=== PATIENT | female | born 1990 | race Caucasian/White ===

== ENCOUNTER → 2022-06-12 16:00 | Outpatient (CLI) | payer BC, SELFPAY ==
--- NOTE | ~2022-06-12 | US_ITS ---
EXAMINATION: US OB <= 14 weeks fetus DATE: 06/12/2022 16:23 INDICATION: Encounter for screening to assess dating and viability of during firs t trimester TECHNIQUE: Real-time pelvic ultrasound utilizing both a transvaginal and transabdominal probe was pe rformed. The interpreting radiologist was not present for the study. COMPARISON: None. FINDINGS: The uterus measures 14.4 x 10.7 x 11.2 cm cm. There is a single living fetus in variable presentation . The placenta is posterior. heart rate is 157 beats per minute (bpm). The amniotic fluid volu me is subjectively normal. Incidentally noted 2.8 cm anechoic right adnexal cyst. The following biometric data were obtained: BPD: 2.5 cm -> 14 weeks 1 days Head circumference: 9.7 cm -> 14 weeks 3 days Abdominal circumference: 7.6 cm -> 14 weeks 1 days Femur length: 1.1 cm -> 13 weeks 1 days These measurements are concordant. Head circumference to abdominal circumference ratio: 1.27 (normal range 1.10-1.35). Estimated weight: 82 g (+/-) 12 g IMPRESSION: 1. Single living fetus in variable presentation with heart rate of 157 bpm. 2. Gestational age by ultrasound of 14 weeks 0 day(s) +/- 7 day(s) with ultrasound estimated date of delivery (ILIA) of 12/11/2022. Estimated weight is 94th percentile by Hadlock criteria when 2022 is used as the ILIA. Please correlate with clinical information or earlier ultrasounds for most a ccurate ILIA. Reviewed, dictated and finalized at location A. IMPRESSION: 1. Single living fetus in variable presentation with heart rate of 157 bp m. 2. Gestational age by ultrasound of 14 weeks 0 day(s) +/- 7 day(s) with ultraso und estimated date of delivery (ILIA) of 12/11/2022. Estimated weight is 94 th percentile by Hadlock criteria when 12/20/2022 is used as the ILIA. Please cor relate with clinical information or earlier ultrasounds for most accurate ILIA.
== END ==
PROVIDERS: PCP Advanced Practice Midwife; Visit Provider Advanced Practice Midwife
DX: Z36.9 Encounter for antenatal screening, unspecified (principal); Z3A.14 14 weeks gestation of pregnancy
CPT/HCPCS: 76801

== ENCOUNTER → 2022-07-22 11:40 | Outpatient (CLI) | payer BC, SELFPAY ==
--- NOTE | ~2022-07-22 | US_ITS ---
EXAMINATION: US OB /maternal detail DATE: 07/22/2022 12:28 INDICATION: Second trimester anatomic survey TECHNIQUE: Real-time ultrasound of the pelvis was performed. COMPARISON: None. FINDINGS: There is a single living fetus in transverse lie. The placenta is posterior/fundal and 7.1 cm from th e internal cervical os. The cervical length is 2.9 cm. heart rate is 149 beats per minute (bpm) . cardiac activity and movement are noted. The amniotic fluid index is subjectively norm al. The following anatomy was identified as normal: 4 chamber heart 3 vessel cord cord insertion kidneys urinary bladder stomach spine diaphragm ventricles cisterna magna cerebellum The following biometric data were obtained: Biparietal diameter (BPD): 4.5 cm; head circumference (HC): 16.7 cm; abdominal circumference (AC): 14 .0 cm; femur length (FL): 2.7 cm. These measurements are concordant. Estimated weight is 266 g +/- 39 g, which correlates with the 12th percentile when 12/11/2022 is used as estimated date of delivery. As single measurements, these parameters are each equal to the following estimated gestational ages w ith ranges of +/- 2 standard deviations: BPD: 19 weeks 4 days ( 17 weeks 5 days - 21 weeks 2 days). HC: 19 weeks 3 days ( 17 weeks 6 days - 20 weeks 6 days). AC: 19 weeks 3 days ( 17 weeks 2 days - 21 weeks 3 days). FL: 18 weeks 2 days ( 16 weeks 3 days - 20 weeks 1 days). estimated gestational age based solely on measurements from this exam is 19 weeks 1 days +/- 1 weeks 2 days. IMPRESSION: 1. Single living fetus in transverse lie. 2. Estimated weight is 266 g +/- 39 g, which correlates with the 12th percentile when 12/11/2022 is used as estimated date of delivery. Reviewed, dictated and finalized at location A. IMPRESSION: 1. Single living fetus in transverse lie. 2. Estimated weight is 266 g +/- 39 g, which correlates with the 12th per centile when 12/11/2022 is used as estimated date of delivery.
== END ==
PROVIDERS: PCP Obstetrics & Gynecology Gynecology; Visit Provider Nurse Practitioner
DX: Z36.9 Encounter for antenatal screening, unspecified (principal)
CPT/HCPCS: 76805

== ENCOUNTER → 2022-10-14 14:02 | Outpatient (CLI) | payer BC, SELFPAY ==
--- NOTE | ~2022-10-14 | US_ITS ---
EXAMINATION: US OB follow up DATE: 10/14/2022 14:32 INDICATION: Size less than dates. Third trimester. TECHNIQUE: Real-time ultrasound of the pelvis was performed. COMPARISON: Ultrasound 07/22/2022, 06/12/2022 FINDINGS: There is a single living fetus in vertex presentation. The placenta is posterior and fundal. h eart rate is 143 beats per minute (bpm). The amniotic fluid index is 20.3 cm, which is normal. The following biometric data were obtained: Biparietal diameter (BPD): 7.9 cm; head circumference (HC): 28.8 cm; abdominal circumference (AC): 25 .7 cm; femur length (FL): 6.0 cm. These measurements are concordant. Estimated weight is 1609 g +/- 241 g, which correlates with the 12th percentile when 12/11/22 is used as estimated date of delivery. As single measurements, these parameters are each equal to the following estimated gestational ages: BPD: 31 weeks 5 days. HC: 31 weeks 5 days. AC: 29 weeks 6 days. FL: 31 weeks 2 days. estimated gestational age based solely on measurements from this exam is 31 weeks 1 days +/- 2 weeks 1 days. IMPRESSION: 1. Single living fetus in vertex presentation. 2. Estimated weight is 1609 g +/- 241 g, which correlates with the 12th percentile when 3 is used as estimated date of delivery. This date was set by ultrasound on 06/12/2022. Reviewed, dictated and finalized at location A. [employer] IMPRESSION: 1. Single living fetus in vertex presentation. 2. Estimated weight is 1609 g +/- 241 g, which correlates with the 12th percentile when 12/11/22 is used as estimated date of delivery. This date was se t by ultrasound on 06/12/2022.
== END ==
PROVIDERS: PCP Advanced Practice Midwife; Visit Provider Advanced Practice Midwife
DX: O36.5930 Maternal care for other known or suspected poor fetal growth, third trimester, not applicable or unspecified (principal); Z3A.31 31 weeks gestation of pregnancy
CPT/HCPCS: 76816

== ENCOUNTER → 2022-11-11 15:58 | Outpatient (CLI) | payer BC, SELFPAY ==
--- NOTE | ~2022-11-11 | US_ITS ---
Pelvic ultrasound. Clinical History: Third trimester , size less than dates Technique: Realtime transabdominal scanning of the pelvis was performed. Findings: The uterus is anteverted, and contains an intrauterine gestation. Biparietal diameter is 8. 8 cm. Head circumference is 31.8 cm. Abdominal circumference is 31.2 cm. Femur length is 6.6 cm. Feta l heart rate is 144 bpm. Amniotic fluid index is 18.0. Estimated weight is 2555 g, +/- 383 g. Impression: Live intrauterine gestation, with estimated gestational age of 35 weeks 1 day. heart rate is 14 4 bpm. Estimated weight is 2555 g, +/- 383 g. ILIA is 12/15/2022. Reviewed, dictated and finalized at location . NICAL DESIGNER Impression: Live intrauterine gestation, with estimated gestational age of 35 weeks 1 day. heart rate is 144 bpm. Estimated weight is 2555 g, +/- 383 g. ILIA is 12/15/2022.
== END ==
PROVIDERS: PCP Nurse Practitioner Family; Visit Provider Obstetrics & Gynecology Gynecology
DX: O36.5930 Maternal care for other known or suspected poor fetal growth, third trimester, not applicable or unspecified (principal); Z3A.35 35 weeks gestation of pregnancy
CPT/HCPCS: 76816

== ENCOUNTER 2022-12-07 04:58 | Inpatient (IN) | payer BC, SELFPAY ==
[2022-12-07] VITALS (91 sets, daily range): BP systolic 82–128; BP diastolic 50–89; PULSE 67–174; RESP 15–18; TEMP 36.6–36.9; O2SAT 89–100; BMI 27.6
--- NOTE | 2022-12-07 04:58 | LDADM ---
This patient, Jessica Stuart, was admitted to Labor/Delivery/Recovery 105 on 12/07/22 at 04:58. Plans for labor, pain management and were discussed with patient. Patient/family oriented to hospital policies and general routines including ID bracelet, bed and alarms, visiting hours, pain management, procedures, bathroom and other care routines, personal items, smoking policy, room service/diet and guest tray routines, security routines, and visiting hours. Patient/Family are encouraged to report perceived risks to care and to ask questions if they do not understand what they are told or what they should do. See OBIX for further documentation.
[2022-12-07] MEDS: OXYTOCIN 30 UNITS/NS 500 ML 30 UNITS/500 ML BAG IV CONT (05:52)
[2022-12-07] MEDS: LACTATED RINGERS 1,000 ML 125 ML IV CONT ×2 (05:53→08:33)
[2022-12-07 05:57] LABS: Basophils Percent Auto 0.3 % (0.2-1.2); Eosinophils Absolute Auto 0.1 K/mm3 (0-0.3); Eosinophils Percent Auto 0.8 % (0-4.4); Hematocrit 34.3 % (37.0-47.0); Immature Granulocyte Absolute 0.09 K/mm3 (0.00-0.031); Immature Granulocyte Percent A 0.6 % (0-0.5); Lymphocytes Absolute Auto 2.88 K/mm3 (0.9-3.2); Lymphocytes Percent Auto 20.4 % (18.3-44.2); Mean Corpuscular Hemoglobin 31.6 pg (26-34); Mean Corpuscular Volume 90.3 fl (80-100); Monocytes Absolute Auto 0.9 K/mm3 (0.1-0.6); Monocytes Percent Auto 6.3 % (2.6-8.5); Neutrophils Absolute Auto 10.1 K/mm3 (1.3-6.7); Neutrophils Percent Auto 71.6 % (45.5-73.1); Platelet Count Result 273 k/mm3 (150-375); Red Cell Distribution Width 12.3 % (11.5-14.5); White Blood Count 14.1 K/mm3 (4.5-10.0)
--- NOTE | 2022-12-07 07:47 | WPDOBADMIT ---
Obstetrics - Admit Note Admission Note: record reviewed. No pertinent additions to the history and/or any subsequent changes in the physical findings that are not consistent with the expected course of the were found. Additions to the history and/or subsequent changes in the physical findings follow. None.
--- NOTE | 2022-12-07 07:47 | PM.OBPNLAB ---
Pain Control Date/time seen: 12/07/22 07:40 Pain control: tolerating well Pelvic Exam Dilation (cm): 4 Effacement (%): 75 station: -2 Amniotic membrane status: Intact Contractions Monitor mode: External Contraction pattern: Irregular Contraction intensity: Mild Status status: Category l Assessment and Plan Pitocin rate (mU/min): 8 (decreased to 4 ml/hr after AROM) Assessment: induction ongoing Comments: CNM to bedside. Discussed plan of care an option for amniotomy and placement of IUPC. Discussed risks, benefits, and expectations of breaking wate as well as IUPC placement. Patient is agreeable. Amniotomy performed and there was a large return of clear amniotic fluid. IUPC placed easily and clear fluid returned in catheter. Oxytocin decreased to 4 ml/hr. Patient tolerated procedure well. Plan to increase pitocin as needed to achieve adequate contraction pattern. Anticipate vaginal . Dr. Morocho updated on pt status.
[2022-12-07 08:13] LABS: Rapid Plasma Reagin Non-Reactive (NonReactive)
--- NOTE | 2022-12-07 08:42 | WPDANESEPP ---
Anes - Eval Pre Procedure Procedure: labor epidural Date/Time: 12/07/22 08:42 Preop Diagnosis: pain during labor Pre Op Diagnosis: iol Patient Data Age: 32 Gender: F Height: 1.7 m Weight: 80 kg Last Vital Signs Temp 36.8 C 12/07/22 06:00 Pulse 89 12/07/22 08:31 Resp 15 12/07/22 06:00 BP 116/77 12/07/22 08:31 Pulse Ox 98 12/07/22 08:37 O2 Del Method Room Air 12/07/22 05:35 Allergies Allergy/AdvReac Type Severity Reaction Status Date / Time No Known Allergies Allergy Verified 11/28/22 14:33 Home Medications Medication Instructions Recorded Confirmed Type vit#24-iron amino acid 1 tablet PO DAILY 11/28/22 12/07/22 History chelat-folic acid 30 mg-975 mcg tablet Laboratory Tests 12/07/22 12/07/22 12/07/22 05:36 05:36 05:36 WBC 14.1 K/mm3 H K/mm3 (4.5-10.0) RBC 3.80 M/mm3 L M/mm3 (4.2-5.4) Hgb 12.0 g/dL g/dL (12.0-15.0) Hct 34.3 % L % (37.0-47.0) MCV 90.3 fl fl (80-100) MCH 31.6 pg pg (26-34) MCHC 35.0 g/dl g/dl (32-36) RDW 12.3 % % (11.5-14.5) Plt Count 273 k/mm3 k/mm3 (150-375) MPV 10.0 fl fl (7.4-10.4) Immature Gran % (Auto) 0.6 % H % (0-0.5) Neut % (Auto) 71.6 % % (45.5-73.1) Lymph % (Auto) 20.4 % % (18.3-44.2) [place] % (Auto) 6.3 % % (2.6-8.5) Eos % (Auto) 0.8 % % (0-4.4) Baso % (Auto) 0.3 % % (0.2-1.2) Lymph # (Auto) 2.88 K/mm3 K/mm3 (0.9-3.2) [place] # (Auto) 0.9 K/mm3 H K/mm3 (0.1-0.6) Eos # (Auto) 0.1 K/mm3 K/mm3 (0-0.3) Baso # (Auto) 0.0 K/mm3 K/mm3 (0.0-0.1) Abs Immat Gran (auto) 0.09 K/mm3 H K/mm3 (0.00-0.031) Absolute Neuts (auto) 10.1 K/mm3 H K/mm3 (1.3-6.7) Absolute Nucleated RBC 0.0 K/mm3 K/mm3 (0.0-0.012) Nucleated RBC % 0.0 % % (0.0-0.2) RPR Non-reactive (NonReactive) Blood Type A Positive Antibody Screen Negative Patient hx anesthesia problems: none Family hx anesthesia problems: none Results Review: All pre-operative results and documents have been reviewed as part of the pre-operative evaluation. [facility] Past Medical History Medical History (Updated 12/07/22 @ 08:43 by Jacinta Sanchez CRNA) IUP (intrauterine ), incidental Family History Family History (Updated 11/28/22 @ 14:36 by Jaz Juarez RN) Father Congestive cardiac failure Diabetes mellitus Social History Social History Smoking status: Never smoker Substance use: never Lack of Transportation: YES Lack of Food: Never True Current Housing: I Have Housing Concerned About Future Housing: No Difficulty Paying Gas/Electric Bills: No Difficulty Paying for Meds: No Currently Unemployed: No Education: Bachelor's Degree Difficulty w/ Childcare or Family Care: No Spiritual care concerns: No Exam Day of Procedure 12/07/22 08:42
--- NOTE | 2022-12-07 11:42 | PM.OBPRVD ---
OB - Delivery Note Procedure Delivery date: 12/07/22 Procedure: Induction method: Per Pitocin Protocol Delivery augmentation: Rupture of Membranes Delivery monitor: External FHT, External Uterine and Internal FHT Route of delivery: Episiotomy description: None Laceration Description: Superficial (right labial and vaginal. Both hemostatic, no repair required) Specimen: No Quantitative Blood Loss (ml): 50 Anesthesia type: Epidural Disposition: Floor Narrative: Patient arrived for induction of labor and Pitocin was started. Amniotomy performed. Patient made Quick change to complete dilation. CNM to bedside. Patient pushed with only 3 contractions and brought the head to a full crown. After the delivery of the head there was excellent restitution. A double nuchal cord was identified and the baby was delivered in a somersault fashion. The nuchal cord was reduced and the was placed skin to skin on the maternal abdomen. Care was transferred to the nursery staff. After 1 minute of life the cord was doubly clamped and cut. Cord blood and cord gases were obtained, as well as a cord segment. All delivery counts correct. Mother and baby skin to skin in the delivery room. Baby Date of : 12/07/22 Time of : 11:29 Weeks of gestation at delivery: 39 gender: Male Weight (pounds): 6 Weight (ounces): 6 presentation: vertex position: Left Occiput Anterior Placenta delivery description: Spontaneous Cord Vessel Description: 3 Vessels, Nuchal Cord (x 2), Clamped/Cut and Delayed Cord Clamping score one minute: 9 score five minutes: 9
--- NOTE | 2022-12-07 11:46 | PM.OBDSVD ---
DS: Admitting Diagnosis Discharge Date 12/08/2022 Admitting Diagnosis 32 y.o. at 39 weeks. IOL DS: Discharge Diagnosis Discharge Diagnosis (1) (normal spontaneous vaginal delivery): Code(s): O80 - Encounter for full-term uncomplicated delivery Status: Acute (2) Mother currently breast-feeding: Code(s): Z39.1 - Encounter for care and examination of lactating mother Status: Acute OB - DS: Summary Hospital Course Hospital Course: Uncomplicated OB Procedures : Ultrasound OB Procedures Intrapartum: Spontaneous Vag Delivery OB Procedures: : None Peripartum Data Infant Delivery Method: Natural Vaginal Laceration Description: Superficial Episiotomy description: None complications: none Status at Discharge Overall status at discharge: patient is progressing back to baseline Time Spent with Patient Time attestation: Total time spent providing and/or coordinating discharge services: Exam Narrative: Alert and oriented. Mood is pleasant and cooperative. Urinating without difficulty. Denies passing any large clots. Perineum with minimal edema. Fundus firm and below umbilicus. Const: General: cooperative, healthy appearing, no acute distress and alert Orientation/consciousness: patient oriented x3 Limitations: no limitations Resp: Effort & Inspection: normal respiratory effort Auscultation: clear to auscultation bilaterally Cardio: Rate: regular rate GI: Inspection: normal to inspection Neuro: General: patient oriented x3 Extrem: General: normal to inspection Psych: Appearance: grossly normal Mental Status: mental status grossly normal Affect: normal affect Thought process: Normal thought process present DS: Data Data Completed and Pending Labs on day of discharge: Labs from last 24 hours 12/07/22 12/07/22 12/07/22 05:36 05:36 05:36 WBC 14.1 H RBC 3.80 L Hgb 12.0 Hct 34.3 L MCV 90.3 MCH 31.6 MCHC 35.0 RDW 12.3 Plt Count 273 MPV 10.0 Immature Gran % (Auto) 0.6 H Neut % (Auto) 71.6 Lymph % (Auto) 20.4 [place] % (Auto) 6.3 Eos % (Auto) 0.8 Baso % (Auto) 0.3 Lymph # (Auto) 2.88 [place] # (Auto) 0.9 H Eos # (Auto) 0.1 Baso # (Auto) 0.0 Abs Immat Gran (auto) 0.09 H Absolute Neuts (auto) 10.1 H Absolute Nucleated RBC 0.0 Nucleated RBC % 0.0 RPR Non-reactive Blood Type A Positive Antibody Screen Negative Discharge Plan Discharge Attending physician on discharge: Luz Morocho Discharging Clinician: Henna Starkey Anticipated Discharge Date/Time: 12/08/22 14:00 Patient Disposition: Home, Self-Care Activity: may shower Diet: as tolerated and regular Discharge Instructions: Continue taking your vitamin and any other supplements as previously directed (Examples: Iron, Vitamin D). You may take Tylenol 1000mg over the counter every 6 hours as needed for pain. Do not exceed 4000mg of Tylenol daily. You may continue using tucks pads and dermoplast spray if needed for a few more days. Patient Instructions: Antibiotic Form Stand Alone Forms: General Discharge Information Follow-up/Referrals: Henna Starkey, CNM [Certified Nurse Factory Representative] - (6 weeks exam) Discharge Medications: New docusate sodium [Colace] 100 mg capsule 100 mg PO BID 30 Days Qty: 60 0RF ibuprofen 600 mg tablet 600 mg PO Q6H PRN (Reason: pain) Qty: 30 0RF norethindrone (contraceptive) [Ortho Micronor] 0.35 mg tablet 0.35 mg PO DAILY Qty: 84 4RF Discontinued Complete 30-975 mg-mcg Tablet 1 tablet PO DAILY Date of admission: 12/07/22 04:58 Primary Care Provider: David,Karissa Cyr Admitting Provider: Luz Morocho Attending physician on admission: Luz Morocho Condition: Stable
[2022-12-07] MEDS: OXYTOCIN 30 UNITS/NS 500 ML 30 UNITS/500 ML BAG 125 UNITS IV CONT (12:10)
[2022-12-07] MEDS: WITCH HAZEL 40 PADS 1 PAD TOPICAL (13:52)
[2022-12-07] MEDS: BENZOCAINE 20% AER SPR (*SP) 56 GM CAN 1 SPRAY TOPICAL (13:52)
--- NOTE | 2022-12-07 14:13 | PC.NURSE ---
Patient transferred to post room #286 via wheelchair. Support person present. Oriented to unit, room, information board, rooming in, admission packet and security measures. Patient verbalizes understanding.
[2022-12-07] MEDS: IBUPROFEN 600 MG TABLET PO ×2 (14:39→20:26)
[2022-12-08 00:22] VITALS: BP 98/60; PULSE 80; RESP 16; TEMP 37; O2SAT 98
[2022-12-08 04:28] VITALS: BP 106/66; PULSE 87; RESP 16; TEMP 36.8; O2SAT 99
[2022-12-08 05:11] LABS: Hematocrit 32.1 % (37.0-47.0); Hemoglobin 11.1 g/dL (12.0-15.0)
[2022-12-08] MEDS: DOCUSATE SODIUM 100 MG CAPSULE PO (07:38)
[2022-12-08] MEDS: MULTIVIT/MIN/PREN/FOL AC/IRON TABLET 1 TAB PO (07:38)
[2022-12-08] MEDS: IBUPROFEN 600 MG TABLET PO (07:38)
--- NOTE | 2022-12-08 07:53 | PM.OBPNVD ---
OB - PN: Subj Subjective Date/time seen: 12/08/22 07:35 Patient comments: no complaints and pain well controlled baby status: doing well and nursing well [place] feeding status: exclusively breast feeding OB - PN: Obj Data Labs 12/08/22 04:24 Labs: Laboratory Results - last 24 hr 12/07/22 12/08/22 05:36 04:24 Hgb 11.1 L Hct 32.1 L RPR Non-reactive OB - PN A/P Plan day: 1 Plan: discharge home and follow up 6 weeks Comments: Desires DC home today. Time Spent With Patient Time: Total time spent is greater than 50% in coordination of care (as documented) at patient's floor/unit and/or counseling patient: Review of Systems Review of Systems: All systems reviewed & are unremarkable except as noted in HPI and below Exam Narrative: Alert and oriented. Mood is pleasant and cooperative. Urinating without difficulty. Denies passing any large clots. Perineum with minimal edema. Fundus firm and below umbilicus. Const: General: cooperative, healthy appearing, no acute distress and alert Orientation/consciousness: patient oriented x3 Limitations: no limitations Resp: Effort & Inspection: normal respiratory effort Auscultation: clear to auscultation bilaterally Cardio: Rate: regular rate GI: Inspection: normal to inspection Neuro: General: patient oriented x3 Extrem: General: normal to inspection Psych: Appearance: grossly normal Mental Status: mental status grossly normal Affect: normal affect Thought process: Normal thought process present
[2022-12-08 08:35] VITALS: BP 110/79; PULSE 88; RESP 16; TEMP 36.7; O2SAT 99
--- NOTE | 2022-12-08 13:26 | WPDANLDPN2 ---
Anes-Prog Note L&D Date/Time: 12/08/22 13:26 Neuro status: Neuro function grossly intact. Vital Signs: Last Vital Signs Temp 36.7 C 12/08/22 08:35 Pulse 88 12/08/22 08:35 Resp 16 12/08/22 08:35 BP 110/79 12/08/22 08:35 Pulse Ox 99 12/08/22 08:35 O2 Del Method Room Air 12/07/22 05:35 Pain score (VAS): 0 I/O: Intake & Output 12/07/22 12/08/22 12/08/22 23:59 07:59 15:59 Intake Total 300 Balance 300 Patient feedback: Patient satisfied with anesthetic care.
--- NOTE | 2022-12-08 14:38 | PC.NURSE ---
[id number] Mother led the conversation with her experience and plan to feed her so far and her ability to independently latch optimally without discomfort. Reminded parents to use good handwashing technique to prevent infection. Mother is feeding appropriately for growth of and understands stimulating to eat if needed. Infant has had appropriate feedings in the last 24 hours meets the outcomes for weight, output and jaundice at this time. Mother states she is confident to continue effectively breastfeed her infant at home, when to call for assistance and denies any additional assistance or education at this time. Reinforced understanding of milk production, transition of milk, signs of adequate intake, transition of stool, prevention/relief of engorgement, responsive watching for feeding cues, the different methods of stimulating infant to breastfeed 2-3 hours after the start of the last feeding, community resources, medication information reviewed per [employer] and when to call a provider using the resource of the mom and baby guide/[facility] website. Mother voiced understanding of the education shared.
[2022-12-09 14:58] VITALS: BP 116/71; PULSE 89; RESP 18; TEMP 36.8; O2SAT 100
== END 2022-12-08 15:07 | disposition home or self-care (01) | DRG 806 ==
LOC: ANHLDR 11:48 → ANHOB2 12-08 07:55 → ANHLDR 12-09 09:34 → ANHOB2 12-09 09:34
PROVIDERS: Admitting Provider Obstetrics & Gynecology Gynecology; PCP Nurse Practitioner Family; Visit Provider Advanced Practice Midwife
DX: O69.81X0 Labor and delivery complicated by cord around neck, without compression, not applicable or unspecified (principal); O71.4 Obstetric high vaginal laceration alone; Z37.0 Single live birth; Z3A.39 39 weeks gestation of pregnancy
CPT/HCPCS: 36415; 85014; 85018; 85025; 86592; 86850; 86900; 86901; A9270; J2590; J2795; J7120